=== PATIENT | female | born 1970 | race Caucasian/White ===

== ENCOUNTER 2019-02-07 01:23 | Emergency (ER) | payer MEDICARE, SELFPAY | END 2019-02-07 01:37 | disposition home or self-care (01) | PROVIDERS: Emergency Provider Emergency Medicine; Family Provider Physician Assistant; Visit Provider Emergency Medicine | DX: L50.0 Allergic urticaria (principal); T78.49XA Other allergy, initial encounter; X58.XXXA Exposure to other specified factors, initial encounter; Z88.2 Allergy status to sulfonamides; F17.210 Nicotine dependence, cigarettes, uncomplicated | CPT/HCPCS: 96374; 99284; J3490 ==

== ENCOUNTER 2019-02-07 23:17 | Emergency (ER) | payer MEDICARE, SELFPAY | END 2019-02-08 01:12 | disposition home or self-care (01) | PROVIDERS: Emergency Provider Physician Assistant; Family Provider Physician Assistant; Visit Provider Physician Assistant | DX: L50.6 Contact urticaria (principal); Z88.2 Allergy status to sulfonamides; F17.210 Nicotine dependence, cigarettes, uncomplicated | CPT/HCPCS: 99283 ==